=== PATIENT | female | born 1965 | race Caucasian/White ===

== ENCOUNTER → 2020-06-07 | Outpatient (CLI) | payer OTHER ==
[~2020-06-07] MED LIST: ATORVASTATIN CA20 MG PO; COLACE100 MG PO; DIFLUCAN150 MG PO; FARXIGA5 MG PO; FLUOXETINE HCL20 M1 PO; GLIPIZIDE10 MG PO; HYDROCODON-ACE1 EAC2 PO; LASIX20 MG PO; LISINOPRIL20 MG PO; METFORMIN HCL1000 MG PO; OMEPRAZOLE20 M1 PO; POTASSIUM99 M1 PO; VICTOZA 1818 MG/3 ML SC
[2020-06-07 11:04] LABS: BUN/CREATININE RATIO 26 (0-10)
== END ==
LOC: OPSV2 09:00
PROVIDERS: Surgery
DX: Z01.818 Encounter for other preprocedural examination (principal); R94.31 Abnormal electrocardiogram [ECG] [EKG]
CPT/HCPCS: 36415; 80048; 84703; 93005

== ENCOUNTER → 2020-06-08 | Day surgery (SDC) | payer OTHER | END | disposition home or self-care (01) | LOC: OR 06:30 | PROVIDERS: Surgery | PROC: 0FT44ZZ Resection of Gallbladder, Percutaneous Endoscopic Approach (ICD-10-PCS; principal; 2020-06-08 08:30) | DX: K81.1 Chronic cholecystitis (principal); I89.8 Other specified noninfective disorders of lymphatic vessels and lymph nodes; K66.0 Peritoneal adhesions (postprocedural) (postinfection); K82.8 Other specified diseases of gallbladder; I10 Essential (primary) hypertension; E78.2 Mixed hyperlipidemia; E11.9 Type 2 diabetes mellitus without complications; G43.909 Migraine, unspecified, not intractable, without status migrainosus; F41.8 Other specified anxiety disorders; E66.01 Morbid (severe) obesity due to excess calories; Z68.43 Body mass index [BMI] 50.0-59.9, adult; Z88.8 Allergy status to other drugs, medicaments and biological substances; Z79.84 Long term (current) use of oral hypoglycemic drugs; Z79.899 Other long term (current) drug therapy | CPT/HCPCS: 82962; J0690; J1100; J2001; J2250; J2405; J2704; J2710; J3010; J7030; J7120 ==